=== PATIENT | male | born 1945 | race Caucasian/White ===

== ENCOUNTER 2018-01-11 17:48 | Inpatient (IN) | payer MEDICARE ==
[~2018-01-11] VITALS: Ht 172.7 cm; Wt 70.3 kg
[2018-01-11 17:52] VITALS: BP 133/83
[2018-01-11] MEDS ORDERED: ATORVASTATIN CA10 MG ORAL (17:52)
[2018-01-11] MEDS ORDERED: LISINOPRIL5 MG ORAL (17:52)
--- NOTE | 2018-01-11 18:36 | Emergency Room Report ---
History of Present Illness General Chief Complaint: Chest Pain Source: EMS Present Illness HPI 72yo M complains of chest pressure that started around 5 PM while sitting there , he called ambulance and they gave him aspirin and nitroglycerin which improved his pressure. Nonradiating type pressure and reports she's had this a couple times in the last few weeks. He also feels his heart rate elevates when having these symptoms, and reports now he feels better. He's had no cough, no syncope, no leg pain, leg swelling, no diaphoresis, no shortness of breath. Currently he has no symptoms. He does report that he is wearing a heart monitor right now because he's been having these palpitations symptoms. He is scheduled to have a CAT scan and a stress test by his doctor in the coming week. Allergies: Coded Allergies: PENICILLINS (Verified Allergy, Unknown, 01/11/18) Uncoded Allergies: SULFA (Allergy, Unknown, 01/11/18) Patient History Reviewed Nursing Documentation: PMH: Agreed, PSxH: Agreed Nursing Documentation-PMH Past Medical History: No History, Except For Hx Cardiac Problems: Yes Hx Hypertension: Yes Review of Systems All Other Systems: negative except mentioned in HPI Physical Exam Vital Signs Date Time Temp Pulse Resp B/P (MAP) Pulse Ox O2 Delivery O2 Flow Rate FiO2 01/11/18 17:42 97.9 84 16 115/81 100 Room Air 97.9 Sp02 EP Interpretation: reviewed, normal General Appearance: no apparent distress, alert, non-toxic Head: normocephalic Eyes: bilateral eye normal inspection, bilateral eye PERRL, bilateral eye EOMI ENT: normal ENT inspection, hearing grossly normal, normal pharynx, no angioedema, normal voice, moist mucus membranes Neck: normal inspection, full range of motion, supple, supple/symm/no masses Respiratory: chest non-tender, lungs clear, normal breath sounds, chest symmetrical, palpation of chest normal Cardiovascular #1: normal inspection - External cardiac Event monitor on left chest, normal peripheral pulses, regular rate, rhythm, no edema, no gallop, no JVD, no murmur, no rub Cardiovascular #2: 2+ radial (R), 2+ radial (L) Gastrointestinal: normal inspection, non tender, soft, no mass, no guarding, no rebound Rectal: deferred Genitourinary: normal inspection, no CVA tenderness Musculoskeletal: back normal, gait/station normal, normal range of motion, non- tender, no calf tenderness, Zacarias's Sign negative Neurologic: alert, responsive, senior tableau developer III-XII nml as tested, motor strength/tone normal, sensory intact, speech normal Psychiatric: judgement/insight normal, memory normal, mood/affect normal, no suicidal/homicidal ideation Skin: normal color, no rash, warm/dry, normal turgor Lymphatic: no adenopathy Medical Decision Making Reaction to Intervention: Improved Diagnostic Impression: Primary Impression: Chest pain EKG Diagnostic Results EKG Time: 18:38 EP Interpretation: no st-t changes, no twi's Rate: normal Rhythm: NSR ASA given to the pt in ED: Yes Rhythm Strip Diag. Results Rhythm Strip Time: 19:13 EP Interpretation: yes Rate: 80 Rhythm: NSR, no PVC's, no ectopy Chest X-Ray Diagnostic Results Chest X-Ray Diagnostic Results : Chest X-Ray Ordered: Yes # of Views/Limited/Complete: 1 View Indication: Chest Pain EP Interpretation: Yes PA Xray: Interpretation reviewed, by supervising MD Interpretation: no consolidation, no effusion, no pneumothorax, no acute cardiopulmonary disease Impression: No acute disease Electronically Signed by: Gerald Sanders MD Last Vital Signs Date Time Temp Pulse Resp B/P (MAP) Pulse Ox O2 Delivery O2 Flow Rate FiO2 01/11/18 17:42 97.9 84 16 115/81 100 Room Air 97.9 GERALD SANDERS M.D Jan 11, 2018 18:36
[2018-01-11 19:01] LABS: BASOPHILS % (AUTO) 0.4 % (0.0-2.0); EOSINOPHILS % (AUTO) 2.1 % (0.0-3.0); HEMATOCRIT 39.3 % (42.0-52.0); HEMOGLOBIN 13.5 G/DL (14.2-18.0); LYMPHOCYTES % (AUTO) 18.1 % (20.0-45.0); MEAN CORPUSCULAR VOLUME 84 FL (80-99); MONOCYTES % (AUTO) 11.3 % (1.0-10.0); NEUTROPHILS % (AUTO) 68.1 % (45.0-75.0); PLATELET COUNT 274 K/UL (150-450); RED CELL DISTRIBUTION WIDTH 11.8 % (11.6-14.8); WHITE BLOOD COUNT 6.7 K/UL (4.8-10.8)
[2018-01-11 19:13] LABS: ANION GAP 7 mmol/L (5-15); BLOOD UREA NITROGEN 13 mg/dL (7-18); CALCIUM 9.1 MG/DL (8.5-10.1); CARBON DIOXIDE 26 MMOL/L (21-32); CHLORIDE 95 MMOL/L (98-107); SODIUM 128 MMOL/L (136-145)
[2018-01-11 19:18] LABS: ALANINE AMINOTRANSFERASE 20 U/L (12-78); ALBUMIN/GLOBULIN RATIO 1.4 (1.0-2.7); ALKALINE PHOSPHATASE 79 U/L (46-116); ASPARTATE AMINO TRANSFERASE 17 U/L (15-37); BILIRUBIN,TOTAL 0.6 MG/DL (0.2-1.0)
[2018-01-11 19:30] VITALS: BP 138/84
[2018-01-11 21:25] VITALS: BP 140/84
[2018-01-11] MEDS ORDERED: Morphine Sulfate 2mg/ml Inj IVP PRN (21:30)
[2018-01-11] MEDS ORDERED: Acetaminophen 650 MG SUPP RECTAL PRN (21:30)
[2018-01-11] MEDS ORDERED: HYDROcodone/Acetamin 10/325 tab ORAL PRN (21:30)
[2018-01-11 22:00] VITALS: BP 132/78
[2018-01-11] MEDS ORDERED: ASPIRIN81 MG ORAL (22:06)
[2018-01-12] MEDS: Lisinopril 2.5mg tab ORAL SCH ×2 (00:23→17:15)
[2018-01-12 02:24] LABS: BASOPHILS % (AUTO) 0.3 % (0.0-2.0); EOSINOPHILS % (AUTO) 2.3 % (0.0-3.0); HEMATOCRIT 38.3 % (42.0-52.0); HEMOGLOBIN 13.3 G/DL (14.2-18.0); LYMPHOCYTES % (AUTO) 14.6 % (20.0-45.0); MEAN CORPUSCULAR VOLUME 83 FL (80-99); MONOCYTES % (AUTO) 7.6 % (1.0-10.0); NEUTROPHILS % (AUTO) 75.2 % (45.0-75.0); PLATELET COUNT 274 K/UL (150-450); RED BLOOD COUNT 4.59 M/UL (4.70-6.10); RED CELL DISTRIBUTION WIDTH 11.6 % (11.6-14.8); WHITE BLOOD COUNT 7.9 K/UL (4.8-10.8)
[2018-01-12 02:40] LABS: ANION GAP 6 mmol/L (5-15); BLOOD UREA NITROGEN 11 mg/dL (7-18); CALCIUM 8.6 MG/DL (8.5-10.1); CARBON DIOXIDE 27 MMOL/L (21-32); CHLORIDE 98 MMOL/L (98-107); CHOLESTEROL 127 MG/DL (< 200); CREATININE 1.1 MG/DL (0.55-1.30); HDL CHOLESTEROL 41 MG/DL (40-60); POTASSIUM 3.7 MMOL/L (3.5-5.1); SODIUM 131 MMOL/L (136-145); TRIGLYCERIDES 79 MG/DL (30-150)
[2018-01-12 04:00] VITALS: BP 127/80
[2018-01-12 08:00] VITALS: BP 118/77
[2018-01-12] MEDS: Heparin 5000 units/ml inj SUBQ SCH ×2 (09:12→22:03)
--- NOTE | 2018-01-12 09:48 | Diagnostic Imaging Report ---
Indication: Chest pain Technique: XRAY Chest 1v Comparison: None Findings: Heart size within normal limits. Mediastinal contours are sharp. There is no focal airspace consolidation, pleural effusion or pneumothorax. There are degenerative changes of the spine. No acute osseous abnormality is seen. A battery pack from a device projects over the left mid chest, possibly heart monitor. Impression: No radiographic evidence of acute cardiopulmonary disease.
[2018-01-12 12:00] VITALS: BP 117/78
[2018-01-12 16:00] VITALS: BP 120/81
--- NOTE | 2018-01-12 17:28 | History and Physical ---
History of Present Illness General Date patient seen: Jan 12, 2018 Reason for Hospitalization: Chest Pain Present Illness HPI This is a 72-year-old gentleman with a past medical history of hypertension and history of palpitation, who presented to the emergency room with chest pressure while at rest. He called the ambulance and they gave him aspirin and nitroglycerin. Pain was nonradiating and happened a couple times last week. The patient apparently saw his team facilitator and underwent a Zio patch placement just two days ago. He was supposed to get a CT scan for his chest and a stress test but has not been done yet. The patient was admitted for further care. Allergies: Coded Allergies: PENICILLINS (Verified Allergy, Unknown, 01/11/18) Uncoded Allergies: SULFA (Allergy, Unknown, 01/11/18) Medication History Scheduled Aspirin* (Aspirin*), 81 MG ORAL DAILY, (Reported) Atorvastatin Calcium* (Lipitor*), 10 MG ORAL BEDTIME, (Reported) Lisinopril (Lisinopril*), 5 MG ORAL DAILY, (Reported) Patient History History Provided By: Patient Healthcare decision maker Resuscitation status Full Code Advanced Directive on File Past Medical/Surgical History Past Medical/Surgical History: (1) HTN (hypertension) Review of Systems All Other Systems: negative except mentioned in HPI Physical Exam General Appearance: WD/WN, no apparent distress HEENT: normocephalic, atraumatic Respiratory/Chest: lungs clear Cardiovascular/Chest: normal rate, regular rhythm Abdomen: non tender, soft Extremities: no edema Neurologic: alert, oriented x 3 Last 24 Hour Vital Signs Date Time Temp Pulse Resp B/P (MAP) Pulse Ox O2 Delivery O2 Flow Rate FiO2 01/12/18 17:15 120/81 01/12/18 16:00 97.9 80 20 120/81 97 Room Air 97.9 80 01/12/18 12:00 97.3 80 21 117/78 97 Room Air 97.3 80 01/12/18 12:00 78 01/12/18 08:00 92 01/12/18 08:00 97.8 76 21 118/77 97 Room Air 97.8 89 01/12/18 04:00 71 01/12/18 04:00 97.9 76 18 127/80 97 Room Air 97.9 80 01/12/18 00:23 132/78 01/12/18 00:00 78 01/11/18 22:00 97.8 82 20 140/84 99 Room Air 97.8 81 01/11/18 22:00 97.7 77 18 132/78 97 Room Air 97.7 80 01/11/18 22:00 78 01/11/18 21:25 97.8 81 20 140/84 99 Room Air 97.8 01/11/18 19:30 97.8 84 19 138/84 98 Room Air 97.8 01/11/18 17:52 97.9 82 21 133/83 99 Room Air 97.9 01/11/18 17:52 82 21 Room Air 01/11/18 17:42 97.9 84 16 115/81 100 Room Air 97.9 Intake and Output 01/11/18 01/12/18 19:00 07:00 Intake Total 0 ml 500 ml Output Total 250 ml Balance 0 ml 250 ml Intake Oral 0 ml 500 ml Output Urine Total 250 ml # Voids 3 Laboratory Tests Test 01/11/18 18:30 01/12/18 02:10 01/12/18 08:00 01/12/18 14:18 White Blood Count 6.7 K/UL (4.8-10.8) 7.9 K/UL (4.8-10.8) Red Blood Count 4.70 M/UL (4.70-6.10) 4.59 M/UL (4.70-6.10) L Hemoglobin 13.5 G/DL (14.2-18.0) L 13.3 G/DL (14.2-18.0) L Hematocrit 39.3 % (42.0-52.0) L 38.3 % (42.0-52.0) L Mean Corpuscular Volume 84 FL (80-99) 83 FL (80-99) Mean Corpuscular Hemoglobin 28.7 PG (27.0-31.0) 29.0 PG (27.0-31.0) Mean Corpuscular Hemoglobin Concent 34.3 G/DL (32.0-36.0) 34.8 G/DL (32.0-36.0) Red Cell Distribution Width 11.8 % (11.6-14.8) 11.6 % (11.6-14.8) Platelet Count 274 K/UL (150-450) 274 K/UL (150-450) Mean Platelet Volume 7.7 FL (6.5-10.1) 7.4 FL (6.5-10.1) Neutrophils (%) (Auto) 68.1 % (45.0-75.0) 75.2 % (45.0-75.0) H Lymphocytes (%) (Auto) 18.1 % (20.0-45.0) L 14.6 % (20.0-45.0) L Monocytes (%) (Auto) 11.3 % (1.0-10.0) H 7.6 % (1.0-10.0) Eosinophils (%) (Auto) 2.1 % (0.0-3.0) 2.3 % (0.0-3.0) Basophils (%) (Auto) 0.4 % (0.0-2.0) 0.3 % (0.0-2.0) Sodium Level 128 MMOL/L (136-145) L 131 MMOL/L (136-145) L Potassium Level 4.0 MMOL/L (3.5-5.1) 3.7 MMOL/L (3.5-5.1) Chloride Level 95 MMOL/L (98-107) L 98 MMOL/L (98-107) Carbon Dioxide Level 26 MMOL/L (21-32) 27 MMOL/L (21-32) Anion Gap 7 mmol/L (5-15) 6 mmol/L (5-15) Blood Urea Nitrogen 13 mg/dL (7-18) 11 mg/dL (7-18) Creatinine 1.0 MG/DL (0.55-1.30) 1.1 MG/DL (0.55-1.30) Estimat Glomerular Filtration Rate mL/min (>60) mL/min (>60) Glucose Level 97 MG/DL (74-106) 133 MG/DL (74-106) H Calcium Level 9.1 MG/DL (8.5-10.1) 8.6 MG/DL (8.5-10.1) Total Bilirubin 0.6 MG/DL (0.2-1.0) Aspartate Amino Transf (AST/SGOT) 17 U/L (15-37) Alanine Aminotransferase (ALT/SGPT) 20 U/L (12-78) Alkaline Phosphatase 79 U/L (46-116) Troponin I 0.000 ng/mL (0.000-0.056) 0.001 ng/mL (0.000-0.056) 0.000 ng/mL (0.000-0.056) 0.000 ng/mL (0.000-0.056) Total Protein 6.8 G/DL (6.4-8.2) Albumin 4.0 G/DL (3.4-5.0) Globulin 2.8 g/dL Albumin/Globulin Ratio 1.4 (1.0-2.7) Triglycerides Level 79 MG/DL (30-150) Cholesterol Level 127 MG/DL (< 200) LDL Cholesterol 82 mg/dL (<100) HDL Cholesterol 41 MG/DL (40-60) Cholesterol/HDL Ratio 3.1 (3.3-4.4) L Height (Feet): 5 Height (Inches): 8.00 Weight (Pounds): 155 Medications Current Medications Medications (Trade) Dose Ordered Sig/Martina Route PRN Reason Start Time Stop Time Status Last Admin Dose Admin Acetaminophen (Tylenol) 650 mg Q4H PRN RECTAL Mild Pain (Pain Scale 1-3) 01/11/18 21:30 02/10/18 21:29 Acetaminophen/ Hydrocodone Bitart (Gipsy 10/325) 1 tab Q4H PRN ORAL Moderate Pain (Pain Scale 4-6) 01/11/18 21:30 01/18/18 21:29 Atorvastatin Calcium (Lipitor) 10 mg BEDTIME ORAL 01/12/18 01:00 02/11/18 00:59 01/12/18 00:22 Dextrose (Dextrose 50%) STAT PRN IV Hypoglycemia 01/11/18 21:30 02/10/18 21:29 Heparin Sodium (Porcine) (Heparin 5000 units/ml) 5,000 units EVERY 12 HOURS SUBQ 01/12/18 09:00 02/11/18 08:59 01/12/18 09:12 Lisinopril (Zestril) 5 mg DAILY@1800 ORAL 01/12/18 01:00 02/11/18 00:59 01/12/18 17:15 Morphine Sulfate (Morphine Sulfate) 2 mg Q4H PRN IVP Severe Pain (Pain Scale 7-10) 01/11/18 21:30 01/18/18 21:29 Ondansetron HCl (Zofran) 4 mg Q6H PRN IVP Nausea & Vomiting 01/11/18 21:30 02/10/18 21:29 Assessment/Plan Problem List: (1) Chest pain ICD Codes: R07.9 - Chest pain, unspecified SNOMED: 39670645 (2) HTN (hypertension) ICD Codes: I10 - Essential (primary) hypertension SNOMED: 81201325 Assessment/Plan Cardio eval. Resume home meds. DVT ppx. Possible stress test per cardio. FARAZ LOPEZ Jan 12, 2018 17:28
--- NOTE | 2018-01-12 17:39 | Cardiac Electrophysiology PN ---
Subjective Subjective Cardiology consult dictated [id number] Objective Last 24 Hour Vital Signs Date Time Temp Pulse Resp B/P (MAP) Pulse Ox O2 Delivery O2 Flow Rate FiO2 01/12/18 17:15 120/81 01/12/18 16:00 97.9 80 20 120/81 97 Room Air 97.9 80 01/12/18 12:00 97.3 80 21 117/78 97 Room Air 97.3 80 01/12/18 12:00 78 01/12/18 08:00 92 01/12/18 08:00 97.8 76 21 118/77 97 Room Air 97.8 89 01/12/18 04:00 71 01/12/18 04:00 97.9 76 18 127/80 97 Room Air 97.9 80 01/12/18 00:23 132/78 01/12/18 00:00 78 01/11/18 22:00 97.8 82 20 140/84 99 Room Air 97.8 81 01/11/18 22:00 97.7 77 18 132/78 97 Room Air 97.7 80 01/11/18 22:00 78 01/11/18 21:25 97.8 81 20 140/84 99 Room Air 97.8 01/11/18 19:30 97.8 84 19 138/84 98 Room Air 97.8 01/11/18 17:52 97.9 82 21 133/83 99 Room Air 97.9 01/11/18 17:52 82 21 Room Air 01/11/18 17:42 97.9 84 16 115/81 100 Room Air 97.9 Intake and Output 01/11/18 01/12/18 19:00 07:00 Intake Total 0 ml 500 ml Output Total 250 ml Balance 0 ml 250 ml Intake Oral 0 ml 500 ml Output Urine Total 250 ml # Voids 3 Laboratory Tests Test 01/11/18 18:30 01/12/18 02:10 01/12/18 08:00 01/12/18 14:18 White Blood Count 6.7 K/UL (4.8-10.8) 7.9 K/UL (4.8-10.8) Red Blood Count 4.70 M/UL (4.70-6.10) 4.59 M/UL (4.70-6.10) L Hemoglobin 13.5 G/DL (14.2-18.0) L 13.3 G/DL (14.2-18.0) L Hematocrit 39.3 % (42.0-52.0) L 38.3 % (42.0-52.0) L Mean Corpuscular Volume 84 FL (80-99) 83 FL (80-99) Mean Corpuscular Hemoglobin 28.7 PG (27.0-31.0) 29.0 PG (27.0-31.0) Mean Corpuscular Hemoglobin Concent 34.3 G/DL (32.0-36.0) 34.8 G/DL (32.0-36.0) Red Cell Distribution Width 11.8 % (11.6-14.8) 11.6 % (11.6-14.8) Platelet Count 274 K/UL (150-450) 274 K/UL (150-450) Mean Platelet Volume 7.7 FL (6.5-10.1) 7.4 FL (6.5-10.1) Neutrophils (%) (Auto) 68.1 % (45.0-75.0) 75.2 % (45.0-75.0) H Lymphocytes (%) (Auto) 18.1 % (20.0-45.0) L 14.6 % (20.0-45.0) L Monocytes (%) (Auto) 11.3 % (1.0-10.0) H 7.6 % (1.0-10.0) Eosinophils (%) (Auto) 2.1 % (0.0-3.0) 2.3 % (0.0-3.0) Basophils (%) (Auto) 0.4 % (0.0-2.0) 0.3 % (0.0-2.0) Sodium Level 128 MMOL/L (136-145) L 131 MMOL/L (136-145) L Potassium Level 4.0 MMOL/L (3.5-5.1) 3.7 MMOL/L (3.5-5.1) Chloride Level 95 MMOL/L (98-107) L 98 MMOL/L (98-107) Carbon Dioxide Level 26 MMOL/L (21-32) 27 MMOL/L (21-32) Anion Gap 7 mmol/L (5-15) 6 mmol/L (5-15) Blood Urea Nitrogen 13 mg/dL (7-18) 11 mg/dL (7-18) Creatinine 1.0 MG/DL (0.55-1.30) 1.1 MG/DL (0.55-1.30) Estimat Glomerular Filtration Rate mL/min (>60) mL/min (>60) Glucose Level 97 MG/DL (74-106) 133 MG/DL (74-106) H Calcium Level 9.1 MG/DL (8.5-10.1) 8.6 MG/DL (8.5-10.1) Total Bilirubin 0.6 MG/DL (0.2-1.0) Aspartate Amino Transf (AST/SGOT) 17 U/L (15-37) Alanine Aminotransferase (ALT/SGPT) 20 U/L (12-78) Alkaline Phosphatase 79 U/L (46-116) Troponin I 0.000 ng/mL (0.000-0.056) 0.001 ng/mL (0.000-0.056) 0.000 ng/mL (0.000-0.056) 0.000 ng/mL (0.000-0.056) Total Protein 6.8 G/DL (6.4-8.2) Albumin 4.0 G/DL (3.4-5.0) Globulin 2.8 g/dL Albumin/Globulin Ratio 1.4 (1.0-2.7) Triglycerides Level 79 MG/DL (30-150) Cholesterol Level 127 MG/DL (< 200) LDL Cholesterol 82 mg/dL (<100) HDL Cholesterol 41 MG/DL (40-60) Cholesterol/HDL Ratio 3.1 (3.3-4.4) ERNESTO PEPPER Jan 12, 2018 17:38
[2018-01-12] MEDS ORDERED: Lexiscan 0.4mg/5ml syringe IV PRN (17:45)
[2018-01-12 20:00] VITALS: BP 134/88
[2018-01-13] VITALS: BP 130/83
[2018-01-13 04:00] VITALS: BP 113/80
--- NOTE | 2018-01-13 05:15 | Consultation ---
DATE OF CONSULTATION: 01/12/2018 CARDIOLOGY CONSULTATION CONSULTING PHYSICIAN: Carlos Arteaga M.D. REFERRING PHYSICIAN: Cecilio Villar M.D. REASON FOR CONSULTATION: Chest pain and arrhythmia. HISTORY OF PRESENT ILLNESS: The patient is a 72-year-old gentleman with history of hypertension and history of palpitation, who presented to the emergency room with chest pressure while he was sitting. He called the ambulance and they gave him aspirin and nitroglycerin. Pain was nonradiating and happened a couple times last week. The patient apparently saw his automatic casting machine operator and underwent a Zio patch placement just two days ago. He was supposed to get a CT scan for his chest and his stress test has not been done yet. The patient was admitted and a Cardiology consultation was obtained for further evaluation. REVIEW OF SYSTEMS: His review of systems was negative other than what was mentioned in the history of present illness. PAST MEDICAL HISTORY: 1. Hypertension. 2. History of palpitation. SOCIAL HISTORY: Denies smoking or drinking alcohol. FAMILY HISTORY: Noncontributory. PHYSICAL EXAMINATION: VITAL SIGNS: Blood pressure is 120/80, pulse is 80, respirations 18, and he is afebrile. HEAD AND NECK: Showed no JVD. LUNGS: Clear. CHEST: He has a Zio patch attached to his left anterior chest. CARDIOVASCULAR: Shows regular S1 and S2 with no gallop or murmur. ABDOMEN: Soft and nontender. EXTREMITIES: No pitting edema. LABORATORY AND DIAGNOSTIC DATA: His EKG showed normal sinus rhythm with normal electrocardiogram. White count is 7.9, hemoglobin 13.2, hematocrit 38.3, and platelet count . Sodium is 131, potassium 3.7, BUN of 11, and creatinine 1.1. Troponin is negative x4. ASSESSMENT AND PLAN: 1. Atypical chest pain. The patient already ruled out for myocardial infarction by four negative troponins. His EKG was also completely normal. We will get an echocardiogram and schedule the patient for nuclear stress test for further evaluation. 2. History of palpitation. The patient already has a Zio patch another two weeks. We will watch the patient on telemetry at this time as well. 3. Hypertension. Continue lisinopril 5 mg daily. 4. Hyperlipidemia, on Lipitor 10 mg daily. Thank you very much, Dr. Villar, for allowing me to participate in the care of this patient. Please do not hesitate to contact me if you have any questions regarding my evaluation. Carlos Arteaga M.D. DR: Whitney JOB#: [id number] CC:
[2018-01-13 08:00] VITALS: BP 123/83
[2018-01-13] MEDS: Heparin 5000 units/ml inj SUBQ SCH ×2 (09:27→22:26)
[2018-01-13 12:00] VITALS: BP 146/93
[2018-01-13 16:00] VITALS: BP 146/93
--- NOTE | 2018-01-13 16:16 | Cardiac Electrophysiology PN ---
Assessment/Plan Assessment/Plan 1. Atypical chest pain. The patient already ruled out for myocardial infarction by four negative troponins. His EKG was also completely normal. Echocardiogram EF 65%. Scheduled for nuclear stress test in am. 2. History of palpitation. The patient already has a Zio patch another two weeks. No arrhythmias except for occasional PVCs on telemetry 3. Hypertension. Continue lisinopril 5 mg daily. 4. Hyperlipidemia, on Lipitor 10 mg daily. JUJU RN Subjective Subjective No chest pain or SOB. ECho shwoed EF 60% Objective Last 24 Hour Vital Signs Date Time Temp Pulse Resp B/P (MAP) Pulse Ox O2 Delivery O2 Flow Rate FiO2 01/13/18 16:00 97.0 75 21 146/93 96 Room Air 97.0 78 01/13/18 12:00 77 01/13/18 12:00 97.1 78 21 146/93 96 Room Air 97.1 78 01/13/18 08:00 97.6 76 21 123/83 96 Room Air 97.6 76 01/13/18 08:00 74 01/13/18 04:00 75 01/13/18 04:00 98.2 75 18 113/80 96 Room Air 98.2 80 01/13/18 00:00 71 01/13/18 00:00 98.1 78 18 130/83 95 Room Air 98.1 80 01/12/18 20:00 98.0 70 20 134/88 95 Room Air 98.0 80 01/12/18 19:57 73 01/12/18 17:15 120/81 Intake and Output 01/12/18 01/13/18 19:00 07:00 Intake Total 1060 ml 360 ml Output Total 600 ml Balance 460 ml 360 ml Intake Oral 1060 ml 360 ml Output Urine Total 600 ml # Voids 2 Laboratory Tests Test 01/12/18 20:15 Troponin I 0.000 ng/mL (0.000-0.056) Objective HEAD AND NECK: Showed no JVD. LUNGS: Clear. CHEST: He has a Zio patch attached to his left anterior chest. CARDIOVASCULAR: Shows regular S1 and S2 with no gallop or murmur. ABDOMEN: Soft and nontender. EXTREMITIES: No pitting edema. ERNESTO NGUYEN Jan 13, 2018 16:16
[2018-01-13] MEDS: Lisinopril 2.5mg tab ORAL SCH (17:27)
[2018-01-13 20:00] VITALS: BP 123/75
[2018-01-14] VITALS: BP 123/85
[2018-01-14 04:00] VITALS: BP 110/85
[2018-01-14 08:00] VITALS: BP 136/85
[2018-01-14] MEDS: Heparin 5000 units/ml inj SUBQ SCH ×2 (09:25→20:22)
--- NOTE | 2018-01-14 11:48 | Nephrology Progress Note ---
Assessment/Plan Problem List: (1) HTN (hypertension) (2) Chest pain Plan stress test scheduled for am. f/iu recs per cardio. Subjective Subjective late entry for 01/13 - Chest pain better. no SOB. Objective Objective Last 24 Hour Vital Signs Date Time Temp Pulse Resp B/P (MAP) Pulse Ox O2 Delivery O2 Flow Rate FiO2 01/14/18 08:00 71 01/14/18 08:00 97.3 78 18 136/85 97 Room Air 97.3 01/14/18 04:00 97.7 80 20 110/85 97 Room Air 97.7 80 01/14/18 04:00 71 01/14/18 00:00 97.5 77 20 123/85 96 Room Air 97.5 77 01/14/18 00:00 67 01/13/18 20:00 90 01/13/18 20:00 97.3 77 20 123/75 96 Room Air 97.3 77 01/13/18 17:27 146/93 01/13/18 16:00 97.0 75 21 146/93 96 Room Air 97.0 78 01/13/18 16:00 85 01/13/18 12:00 77 01/13/18 12:00 97.1 78 21 146/93 96 Room Air 97.1 78 Intake and Output 01/13/18 01/14/18 19:00 07:00 Intake Total 800 ml 100 ml Balance 800 ml 100 ml Intake Oral 800 ml 100 ml # Voids 4 Height (Feet): 5 Height (Inches): 8.00 Weight (Pounds): 155 General Appearance: no apparent distress, alert Cardiovascular: normal rate, regular rhythm Respiratory/Chest: lungs clear Abdomen: non tender, soft Extremities: non-pitting Neurologic: alert, oriented x 3 FARAZ LOPEZ Jan 14, 2018 11:48
[2018-01-14 12:00] VITALS: BP 140/79
--- NOTE | 2018-01-14 15:49 | Diagnostic Imaging Report ---
Indications: 72-year-old male with chest pain Technique: Single day single isotope protocol utilized. Initially, resting images obtained using IV administration 10 point millicuries 99M technetium Myoview. Subsequently, patient underwent lexiscan stress testing. See cardiology report for details. During adenosine infusion, IV administration 31.7 mCi 99 M technetium Myoview. SPECT and planar images obtained. SPECT images gated to 8 phases of the cardiac cycle were also obtained, and reformatted into cine images for evaluation of ejection fraction. Comparison: none Findings: Presence or absence of symptoms is not described on the cardiology report. Per cardiology report, resting EKG demonstrates normal sinus rhythm. Cardiology report does not describe presence or absence EKG changes during infusion. Imaging demonstrates normal poststress perfusion, no fixed nor reversible post stress perfusion defects. Normal cardiac chamber size. Calculated post stress ejection fraction 83%. No focal wall motion abnormality Impression: Nonischemic clinical response to pharmacologic stress, per cardiology report Nonischemic electrocardiographic response to pharmacologic stress, per cardiology report No imaging findings to suggest ischemia, at level of stress achieved. Calculated post stress ejection fraction greater than 70%
[2018-01-14 16:00] VITALS: BP 128/79
[2018-01-14] MEDS: Lisinopril 2.5mg tab ORAL SCH (18:38)
[2018-01-14 20:00] VITALS: BP 143/89
[2018-01-15] VITALS: BP 133/85
[2018-01-15 04:00] VITALS: BP 124/83
[2018-01-15 08:00] VITALS: BP 108/69
[2018-01-15] MEDS: Heparin 5000 units/ml inj SUBQ SCH (08:26)
[2018-01-15 10:25] LABS: BASOPHILS % (AUTO) 0.5 % (0.0-2.0); EOSINOPHILS % (AUTO) 1.8 % (0.0-3.0); HEMATOCRIT 39.8 % (42.0-52.0); HEMOGLOBIN 13.8 G/DL (14.2-18.0); LYMPHOCYTES % (AUTO) 11.8 % (20.0-45.0); MEAN CORPUSCULAR VOLUME 84 FL (80-99); NEUTROPHILS % (AUTO) 78.9 % (45.0-75.0); PLATELET COUNT 281 K/UL (150-450); RED BLOOD COUNT 4.73 M/UL (4.70-6.10); WHITE BLOOD COUNT 8.5 K/UL (4.8-10.8)
[2018-01-15 10:37] LABS: ALANINE AMINOTRANSFERASE 22 U/L (12-78); ALBUMIN 3.9 G/DL (3.4-5.0); ALBUMIN/GLOBULIN RATIO 1.3 (1.0-2.7); ALKALINE PHOSPHATASE 81 U/L (46-116); ANION GAP 8 mmol/L (5-15); ASPARTATE AMINO TRANSFERASE 13 U/L (15-37); BILIRUBIN,TOTAL 0.7 MG/DL (0.2-1.0); BLOOD UREA NITROGEN 14 mg/dL (7-18); CALCIUM 9.2 MG/DL (8.5-10.1); CARBON DIOXIDE 27 MMOL/L (21-32); CHLORIDE 97 MMOL/L (98-107); SODIUM 131 MMOL/L (136-145)
--- NOTE | 2018-01-15 11:49 | Nephrology Progress Note ---
Assessment/Plan Problem List: (1) HTN (hypertension) (2) Chest pain Plan f/u stress test results. f/u recs per cardio. d/c plan in am if ok with cardio. Subjective Subjective late entry for 01/14 - Getting stress test today Objective Objective Last 24 Hour Vital Signs Date Time Temp Pulse Resp B/P (MAP) Pulse Ox O2 Delivery O2 Flow Rate FiO2 01/15/18 08:00 94 01/15/18 08:00 98.1 84 18 108/69 95 Room Air 98.1 01/15/18 04:00 97.5 72 18 124/83 95 Room Air 97.5 01/15/18 04:00 72 01/15/18 00:00 87 01/15/18 00:00 97.7 70 20 133/85 95 Room Air 97.7 01/14/18 20:00 95 01/14/18 20:00 96.8 76 20 143/89 97 Room Air 96.8 01/14/18 18:38 128/79 01/14/18 16:00 98.2 95 18 128/79 97 Room Air 98.2 01/14/18 15:22 77 01/14/18 12:00 97.9 78 18 140/79 96 Room Air 97.9 Intake and Output 01/14/18 01/15/18 19:00 07:00 Intake Total 480 ml 300 ml Output Total 400 ml Balance 80 ml 300 ml Intake Oral 480 ml 300 ml Output Urine Total 400 ml # Voids 2 Laboratory Tests 01/15/18 10:10: White Blood Count 8.5, Red Blood Count 4.73, Hemoglobin 13.8L, Hematocrit 39.8L , Mean Corpuscular Volume 84, Mean Corpuscular Hemoglobin 29.2, Mean Corpuscular Hemoglobin Concent 34.7, Red Cell Distribution Width 12.0, Platelet Count 281, Mean Platelet Volume 7.7, Neutrophils (%) (Auto) 78.9H, Lymphocytes ( %) (Auto) 11.8L, Monocytes (%) (Auto) 7.0, Eosinophils (%) (Auto) 1.8, Basophils (%) (Auto) 0.5, Sodium Level 131L, Potassium Level 4.0, Chloride Level 97L, Carbon Dioxide Level 27, Anion Gap 8, Blood Urea Nitrogen 14, Creatinine 1.0, Estimat Glomerular Filtration Rate , Glucose Level 108H, Calcium Level 9.2, Total Bilirubin 0.7, Aspartate Amino Transf (AST/SGOT) 13L, Alanine Aminotransferase (ALT/SGPT) 22, Alkaline Phosphatase 81, Total Protein 7.0, Albumin 3.9, Globulin 3.1, Albumin/Globulin Ratio 1.3 Height (Feet): 5 Height (Inches): 8.00 Weight (Pounds): 155 General Appearance: no apparent distress Cardiovascular: normal rate, regular rhythm Respiratory/Chest: lungs clear Abdomen: non tender, soft Extremities: non-pitting Neurologic: alert, oriented x 3 FARAZ LOPEZ Jan 15, 2018 11:49
--- NOTE | 2018-01-15 11:51 | Discharge Summary ---
Discharge Summary Hospital Course Date of Admission Jan 11, 2018 at 21:07 Date of Discharge 01/15/18 Admitting Diagnosis chest pain JULIO C Medina is a 72 year old male who was admitted on Jan 11, 2018 at 21:07 for CP Consultations Cardiology - Dr. Arteaga. Procedures NM myocardial stress test - Nonischemic clinical response to pharmacologic stress, per cardiology report Nonischemic electrocardiographic response to pharmacologic stress, per cardiology report No imaging findings to suggest ischemia, at level of stress achieved. Calculated post stress ejection fraction greater than 70% Hospital Course Patient's serial troponin was negative x 4. NM myocardial stress test was nonischemic. EF was 65%. Patient remained hemodynamically stable without any further chest pain. Discharge Condition Upon Discharge: stable Discharge Disposition Patient was discharged to home. Discharge Diagnoses: (1) HTN (hypertension) (2) Chest pain FARAZ LOPEZ Jan 15, 2018 11:51
[2018-01-15 12:00] VITALS: BP 119/78
--- NOTE | 2018-01-15 14:52 | Physician Query ---
--------- THIS DOCUMENT IS A PERMANENT PART OF THE MEDICAL RECORD --------- PLEASE COMPLETE THE DOCUMENT BEFORE SIGNING Dear Dr. LOPEZ Date 01/15/18 Director Of Early Childhood/CDS' Name WERNER MARGIE/YAAKOV Director Of Early Childhood/CDS Phone#: [phone] Exercise your independent professional judgment when responding to query. Questions asked do not imply particular answer is desired or expected. We greatly appreciate your clarification on this issue. Clinical Documentation States: "CHEST PAIN" m- in H&P Hospital Course Patient's serial troponin was negative x 4. NM myocardial stress test was nonischemic. EF was 65% DIAGNOSES: HYPERTENSION, CHEST PAIN Please document the suspected etiology of Chest Pain: a.Type: []Cardiac []Non-cardiac []Unspecified b.Etiology - cardiac [] Aortic dissection []Mitral valve prolapsed [] Acute myocardial infarction []Spasm of coronary arteries [] Coronary Artery Disease []Pericarditis c.Etiology - non-cardiac [] Anxiety []Pleurisy [] Cancer []Pneumonia, type [] Costochondritis []Pneumothorax [] GERD/Esophagitis []Pulmonary embolism [] Unable to determine []Other: Condition Present on Admission: [] Yes [] No []Clinically Undeterminable Please also document in your Progress Notes and/or Discharge Summary and indicate if the condition was present on admission. FARAZ LOPEZ M.D. DATE & TIME [facility]
--- NOTE | 2018-01-15 15:42 | Cardiac Electrophysiology PN ---
Assessment/Plan Assessment/Plan 1. Atypical chest pain. The patient already ruled out for myocardial infarction by four negative troponins. His EKG was also completely normal. Echocardiogram EF 65%. Nuclear stress test showed no ischemia 2. History of palpitation. The patient already has a Zio patch another two weeks. No arrhythmias except for occasional PVCs on telemetry 3. Hypertension. Continue lisinopril 5 mg daily. 4. Hyperlipidemia, on Lipitor 10 mg daily. DW RN OK to DC Subjective Subjective No chest pain or SOB. No event. Objective Last 24 Hour Vital Signs Date Time Temp Pulse Resp B/P (MAP) Pulse Ox O2 Delivery O2 Flow Rate FiO2 01/15/18 12:00 98.0 83 18 119/78 96 Room Air 98.0 01/15/18 12:00 76 01/15/18 08:00 94 01/15/18 08:00 98.1 84 18 108/69 95 Room Air 98.1 01/15/18 04:00 97.5 72 18 124/83 95 Room Air 97.5 01/15/18 04:00 72 01/15/18 00:00 87 01/15/18 00:00 97.7 70 20 133/85 95 Room Air 97.7 01/14/18 20:00 95 01/14/18 20:00 96.8 76 20 143/89 97 Room Air 96.8 01/14/18 18:38 128/79 01/14/18 16:00 98.2 95 18 128/79 97 Room Air 98.2 Intake and Output 01/14/18 01/15/18 19:00 07:00 Intake Total 480 ml 300 ml Output Total 400 ml Balance 80 ml 300 ml Intake Oral 480 ml 300 ml Output Urine Total 400 ml # Voids 2 Laboratory Tests Test 01/15/18 10:10 White Blood Count 8.5 K/UL (4.8-10.8) Red Blood Count 4.73 M/UL (4.70-6.10) Hemoglobin 13.8 G/DL (14.2-18.0) L Hematocrit 39.8 % (42.0-52.0) L Mean Corpuscular Volume 84 FL (80-99) Mean Corpuscular Hemoglobin 29.2 PG (27.0-31.0) Mean Corpuscular Hemoglobin Concent 34.7 G/DL (32.0-36.0) Red Cell Distribution Width 12.0 % (11.6-14.8) Platelet Count 281 K/UL (150-450) Mean Platelet Volume 7.7 FL (6.5-10.1) Neutrophils (%) (Auto) 78.9 % (45.0-75.0) H Lymphocytes (%) (Auto) 11.8 % (20.0-45.0) L Monocytes (%) (Auto) 7.0 % (1.0-10.0) Eosinophils (%) (Auto) 1.8 % (0.0-3.0) Basophils (%) (Auto) 0.5 % (0.0-2.0) Sodium Level 131 MMOL/L (136-145) L Potassium Level 4.0 MMOL/L (3.5-5.1) Chloride Level 97 MMOL/L (98-107) L Carbon Dioxide Level 27 MMOL/L (21-32) Anion Gap 8 mmol/L (5-15) Blood Urea Nitrogen 14 mg/dL (7-18) Creatinine 1.0 MG/DL (0.55-1.30) Estimat Glomerular Filtration Rate mL/min (>60) Glucose Level 108 MG/DL (74-106) H Calcium Level 9.2 MG/DL (8.5-10.1) Total Bilirubin 0.7 MG/DL (0.2-1.0) Aspartate Amino Transf (AST/SGOT) 13 U/L (15-37) L Alanine Aminotransferase (ALT/SGPT) 22 U/L (12-78) Alkaline Phosphatase 81 U/L (46-116) Total Protein 7.0 G/DL (6.4-8.2) Albumin 3.9 G/DL (3.4-5.0) Globulin 3.1 g/dL Albumin/Globulin Ratio 1.3 (1.0-2.7) Objective HEAD AND NECK: Showed no JVD. LUNGS: Clear. CHEST: He has a Zio patch attached to his left anterior chest. CARDIOVASCULAR: Shows regular S1 and S2 with no gallop or murmur. ABDOMEN: Soft and nontender. EXTREMITIES: No pitting edema. ERNESTO NGYUEN Jan 15, 2018 15:42
--- NOTE | 2018-01-15 18:01 | Cardiology Report ---
APPROVED REPORT EXAM: Two-dimensional and M-mode echocardiogram with Doppler and color Doppler. INDICATION Chest Pain M-Mode DIMENSIONS IVSd1.2 (0.7-1.1cm)Left Atrium (MM)3.7 (1.6-4.0cm) LVDd3.3 (3.5-5.6cm)Aortic Root3.1 (2.0-3.7cm) PWd0.9 (0.7-1.1cm)Aortic Cusp Exc.2.1 (1.5-2.0cm) LVDs0.8 (2.5-4.0cm) PWs1.6 cm Normal left ventricular chamber size, systolic function and wall motion. Left ventricular ejection fraction estimated to be 60-65 %. Mild left ventricular hypertrophy. No evidence of pericardial effusion. All other cardiac chamber sizes are within normal limits. Focal aortic valve sclerosis with adequate cusp excursion. Mildly thickened mitral valve leaflets with normal excursion. Mild mitral annulus and aortic root calcification. Normal pulmonic valve structure. Normal tricuspid valve structure. IVC measures at 1.9 cm with physiological collapse. A color flow and spectral Doppler study was performed and revealed: Mild aortic insufficiency. No mitral regurgitation. Mitral diastolic velocities suggest mild left ventricular diastolic dysfunction (Grade I). Trace tricuspid regurgitation. Tricuspid systolic velocities suggests peak right ventricular systolic pressure of 30 mmHg. No pulmonic regurgitation present.
--- NOTE | 2018-01-15 18:48 | Cardiology Report ---
APPROVED REPORT EKG Measurement Heart [id number] Normal sinus rhythm Normal ECG
== END 2018-01-15 17:30 | disposition home or self-care (01) | DRG 303 ==
LOC: EDBD 17:48 → EMR 20:07 → EDBEDREQ 20:35 → 2E 21:07
DX: I25.119 Atherosclerotic heart disease of native coronary artery with unspecified angina pectoris (principal); I10 Essential (primary) hypertension; E78.5 Hyperlipidemia, unspecified; Z88.0 Allergy status to penicillin; Z88.2 Allergy status to sulfonamides; R00.2 Palpitations
CPT/HCPCS: 36415; 71045; 78452; 80048; 80053; 80061; 84484; 85025; 93005; 93017; 93306; 99285; J2785